=== PATIENT | male | born 1985 | race Caucasian/White ===

== ENCOUNTER → 2017-12-25 | Outpatient (CLI) | payer OTHER ==
[~2017-12-25] MED LIST: ASPIR-TRIN325 M1 PO; HYDROMORPHONE HC4 MG PO; Levothroid,Synthroid PO; MORPHINE SULFAT30 M2 PO; MULTIVITAMIN1 EAC2 PO; NOHOMEMEDS; OXYCODONE HCL30 MG PO; PERCOCET 10-321 EACH PO; ULTRAM50 MG PO
== END | disposition home or self-care (01) ==
LOC: EEG 08:00
DX: R55 Syncope and collapse (principal); R44.0 Auditory hallucinations
CPT/HCPCS: 95819